=== PATIENT | male | born 1990 | race Caucasian/White ===

== ENCOUNTER 2017-12-01 16:07 | Emergency (ER) | payer OTHER ==
[~2017-12-01] VITALS: Ht 188 cm; Wt 158.8 kg
[~2017-12-01 16:07] MED LIST: FLEXERIL PO; MOBIC7.5 MG PO; NAPROSYN375 MG PO; VENTOLIN HFA 1818 GM INH
[2017-12-01] MEDS ORDERED: NORCO 5-325 TA1 EACH PO (17:29)
[2017-12-01] MEDS ORDERED: IBUPROFEN 800800 MG PO (17:29)
[2017-12-01 17:56] VITALS: BP 152/82
== END 2017-12-01 17:57 | disposition home or self-care (01) ==
LOC: M.ERS 16:07
DX: M51.26 Other intervertebral disc displacement, lumbar region (principal); J45.909 Unspecified asthma, uncomplicated; Z88.1 Allergy status to other antibiotic agents; F17.210 Nicotine dependence, cigarettes, uncomplicated